=== PATIENT | female | born 1970 | race Caucasian/White ===

== ENCOUNTER 2019-04-21 10:36 | Emergency (ER) | payer MEDICAID ==
[~2019-04-21] VITALS: Ht 157.5 cm; Wt 85.3 kg
[2019-04-21 10:40] VITALS: BP_SYST 117
--- NOTE | 2019-04-21 10:40 | NUR ---
Patient to ER bed 2 to gown for evaluation. Side rails up.
--- NOTE | 2019-04-21 10:42 | NUR ---
Patient presented to ER C/O chest pain. Patient A&Ox4, ambulatory, skin pink and warm, pain 8/10, nausea, denies D/V. Patient states she has cough with chest pain x2 days, headache, and is very tired x2 days. [facility] is resident of [facility].
--- NOTE | 2019-04-21 10:47 | NUR ---
ARNOLD Kirby at bedside examining patient.
[2019-04-21] MEDS ORDERED: methylPREDNISolone SOD SUCC/PF 62.5 MG/ML VIAL IVP ONE (11:00)
[2019-04-21] MEDS ORDERED: NACL 0.9% 1,000 ML IV ONE (11:00)
[2019-04-21] MEDS ORDERED: IPRATROPIUM/ALBUTEROL SULFATE 3 ML AMPUL.NEB (DUONEB) INH ONE (11:00)
[2019-04-21] MEDS ORDERED: KETOROLAC TROMETHAMINE 30 MG VIAL IVP ONE (11:00)
[2019-04-21] MEDS ORDERED: ACETAMINOPHEN 500 MG TABLET PO ONE (11:30)
[2019-04-21 11:35] LABS: BILIRUBIN,URINE NEGATIVE (NEGATIVE); BLOOD, URINE NEGATIVE (NEGATIVE); CLARITY/URINE CLEAR (CLEAR); COLOR,URINE YELLOW (YELLOW); GLUCOSE,URINE NEGATIVE (NEGATIVE); KETONES,URINE NEGATIVE (NEGATIVE); LEUKOCYTE ESTERASE ,URINE NEGATIVE (NEGATIVE); NITRITE, URINE NEGATIVE (NEGATIVE); PROTEIN URINE NEGATIVE (NEGATIVE); UROBILINOGEN,URINE 0.2 (0.2-1.0)
[2019-04-21 11:35] LABS: BASOPHILS % (AUTO) 0.3 % (0.0-2.0); EOSINOPHILS % (AUTO) 0.3 % (0.0-4.0); HEMATOCRIT 36.4 % (36-48); HEMOGLOBIN 12.1 g/dL (12.0-16.0); LYMPHOCYTES # (AUTO) 0.5 K/uL (1.0-5.5); LYMPHOCYTES % (AUTO) 7.7 % (20.5-51.5); MEAN CORPUSCULAR HEMOGLOBIN 30 pg (27-31); MEAN CORPUSCULAR HGB CONC 33 % (32-36); MEAN CORPUSCULAR VOLUME 90 fL (79.0-98.0); MONOCYTES # (AUTO) 0.7 K/uL (0.0-1.0); MONOCYTES % (AUTO) 9.7 % (1.7-9.3); NEUTROPHILS # (AUTO) 5.7 K/uL (1.8-7.7); PLATELET COUNT (AUTO) 208 K/uL (130-430); RED BLOOD CELL COUNT(AUTO) 4.06 MIL/uL (4.2-6.2); RED CELL DISTRIBUTION WIDTH 14.1 % (9.0-15.0)
[2019-04-21 11:42] LABS: ANION GAP 5 (5-15); CALCIUM 8.4 mg/dL (8.4-11.0); CHLORIDE 98 mmol/L (98-107); CREATININE 0.79 mg/dL (0.55-1.30); GLUCOSE 98 mg/dL (70-99); POTASSIUM 3.6 mmol/L (3.5-5.1); SODIUM SERUM 132 mmol/L (136-145); UREA NITROGEN, BLOOD 6 mg/dL (8-21)
[2019-04-21 11:45] LABS: BARBITURATE, URINE NEGATIVE (NEG <=200); BENZODIAZEPINE, URINE NEGATIVE (NEG <=150); CANNABINOID, URINE NEGATIVE (NEG <=50); COCAINE, URINE NEGATIVE (NEG <=150); METHAMPHETAMINES SCREEN,URINE NEGATIVE (NEG <=500); OPIATE, URINE NEGATIVE (NEG <=100); PHENCYCLIDINE SCREEN,URINE NEGATIVE (NEG <=25); UR TRICYCLIC ANTIDEPRESSANTS NEGATIVE (NEG <=300); URINE AMPHETAMINE NEGATIVE (NEG <=500); URINE METHADONE NEGATIVE (NEG <=200); URINE OXYCODONE SCREEN NEGATIVE (NEG <=100); URINE PROPOXYPHENE SCREEN NEGATIVE (NEG <=300)
[2019-04-21 11:47] LABS: GFR AFRICAN AMERICAN 100 mL/min (>90)
[2019-04-21 11:59] LABS: ALANINE AMINOTRANSFERASE 41 U/L (12-78); ALBUMIN 3.8 g/dL (3.4-4.8); ASPARTATE AMINOTRANSFERASE 42 U/L (10-37); TOTAL BILIRUBIN 0.6 mg/dL (0.0-1.0)
[2019-04-21] MEDS ORDERED: OSELTAMIVIR PHOSPHATE 75 MG CAPSULE PO ONE (12:45)
[2019-04-21] MEDS ORDERED: METOCLOPRAMIDE HCL 10 MG/2 ML VIAL IVP ONE (14:00)
[2019-04-21 14:10] VITALS: BP_SYST 117
--- NOTE | 2019-04-21 14:10 | NUR ---
Patient given written and verbal discharge instructions and verbalizes understanding. ER MD discussed with patient the results and treatment provided. Patient in stable condition. ID arm band removed. IV catheter removed intact and dressing applied, no active bleeding. Rx of Prometizine, albuterol, tamiflu given. Patient educated on pain management and to follow up with PMD. Pain Scale 3/10 tolerable for patient. Opportunity for questions provided and answered.
== END 2019-04-21 14:10 | disposition home or self-care (01) ==
LOC: SED 10:36
DX: J10.1 Influenza due to other identified influenza virus with other respiratory manifestations (principal); J45.909 Unspecified asthma, uncomplicated; I10 Essential (primary) hypertension; R07.89 Other chest pain; R05 Cough; F15.90 Other stimulant use, unspecified, uncomplicated; F17.200 Nicotine dependence, unspecified, uncomplicated
CPT/HCPCS: 36415; 71046; 80053; 80307; 81003; 83880; 84484; 85025; 86710; 94640; 96374; 96375; 99284; G9035; J1885; J2765; J2930; J7030; J7620

== ENCOUNTER 2024-01-27 18:12 | Emergency (ER) | payer MEDICAID ==
[~2024-01-27] VITALS: Ht 154.9 cm; Wt 66.7 kg
[2024-01-27 19:44] VITALS: BP_SYST 160; PULSE 75; RESP 18; TEMP 98.3; O2SAT 97
[2024-01-27] MEDS ORDERED: IBUP-1969 PO (21:12)
[2024-01-27] MEDS ORDERED: PRED20TA PO (21:12)
[2024-01-27] MEDS ORDERED: DIPH25CA83 PO (21:12)
[2024-01-27] MEDS ORDERED: KETOROLAC TROMETHAMINE 60 MG/2 ML VIAL IM ONE (21:15)
[2024-01-27] MEDS ORDERED: predniSONE 20 MG TABLET PO ONE (21:15)
[2024-01-27] MEDS ORDERED: DIPHENHYDRAMINE HCL 25 MG CAPSULE PO ONE (21:15)
== END 2024-01-27 21:40 | disposition home or self-care (01) ==
LOC: SED 18:12
DX: G89.29 Other chronic pain (principal); M54.50 Low back pain, unspecified; R21 Rash and other nonspecific skin eruption; T78.49XA Other allergy, initial encounter; J45.909 Unspecified asthma, uncomplicated; I10 Essential (primary) hypertension; I25.2 Old myocardial infarction; Z91.048 Other nonmedicinal substance allergy status; X58.XXXA Exposure to other specified factors, initial encounter
CPT/HCPCS: 99283